=== PATIENT | female | born 1975 | race Caucasian/White ===

== ENCOUNTER 2016-08-30 19:33 | Emergency (ER) | payer OTHER ==
[~2016-08-30] VITALS: Ht 154.9 cm; Wt 68.6 kg
[2016-08-30 19:46] VITALS: BP 112/76
--- NOTE | 2016-08-30 20:35 | NUR ---
PATIENT TO ER BED 3
--- NOTE | 2016-08-30 20:58 | NUR ---
Patient being evaluated by physician at bedside.
[2016-08-30] MEDS ORDERED: diphenhydrAMINE 50 MG/ML VIAL IM ONE (21:00)
[2016-08-30 22:00] VITALS: BP 139/87
== END 2016-08-30 22:00 | disposition home or self-care (01) ==
LOC: MED 19:33
DX: F41.0 Panic disorder [episodic paroxysmal anxiety] (principal)
CPT/HCPCS: 81002; 81025; 96372; 99284; J1200

== ENCOUNTER 2017-12-29 03:08 | Emergency (ER) | payer BC ==
[~2017-12-29] VITALS: Ht 165.1 cm; Wt 74.4 kg
[2017-12-29 03:08] VITALS: BP 127/79
--- NOTE | 2017-12-29 03:08 | NUR ---
PATIENT AMBULATED TO ER BED 2.
--- NOTE | 2017-12-29 03:10 | NUR ---
42 Y/O F PRESENTS TO THE ED W/C/O "MY HEART IS BEATING REALLY FAST, AND I FEEL PALPIATIONS." PT DENYING PAIN AT THIS TIME. PT DENIES N/V/D; SKIN IS INTACT, PINK/WARM/DRY; AAOX4, PERRL, WITH EVEN AND STEADY GAIT; LUNGS CLEAR BL, BREATHING UNLABORED; HR EVEN AND REGULAR, BL PERIPHERAL PULSES PRESENT; BS ACTIVE X4, NO TENDERNESS TO PALPATION, NO HEPATOSPLENOMEGALLY PALPATED, RESONANT TO PERCUSSION; PT DENIES ANY FEVER, SOB, OR COUGH AT THIS TIME; PT STATES 0/10 PAIN AT THIS TIME; VSS; PATIENT POSITIONED FOR COMFORT; HOB ELEVATED; BEDRAILS UP X2; BED DOWN.
--- NOTE | 2017-12-29 03:14 | NUR ---
EKG PERFORMED AT BEDSIDE WITH FAMILY MEMBER PRESENT. NORMAL SINUS RHYTHM
--- NOTE | 2017-12-29 04:16 | NUR ---
PT RESTING IN BED. NAD NOTED
--- NOTE | 2017-12-29 04:41 | NUR ---
DR. RIBEIRO EVALUATING AT BEDSIDE
[2017-12-29 04:44] VITALS: BP 125/75
--- NOTE | 2017-12-29 04:45 | NUR ---
Patient discharged with v/s stable. Written and verbal after care instructions given and explained. Patient verbalized understanding. Ambulatory with steady gait. All questions addressed prior to discharge. Advised to follow up with PMD.
== END 2017-12-29 04:44 | disposition home or self-care (01) ==
LOC: MED 03:08
DX: R00.2 Palpitations (principal); R19.7 Diarrhea, unspecified; R06.02 Shortness of breath
CPT/HCPCS: 81002; 81025; 93005; 99283